=== PATIENT | female | born 1995 | race Two or more races ===

== ENCOUNTER 2021-10-25 19:50 | Emergency (ER) | payer MEDICAID ==
[~2021-10-25] VITALS: Ht 152.4 cm; Wt 54.4 kg
[2021-10-25 20:07] VITALS: BP 152/99
--- NOTE | 2021-10-25 20:10 | NUR ---
BIBS C/O LEFT EAR PAIN X1 DAY WITH REDNESS ON TRAGUS. PATIENT ALERT AND ORIENTED X3. AMBULATORY WITH NON LABORED BREATHING.
[2021-10-25] MEDS ORDERED: CEPH500C2 PO (20:21)
[2021-10-25] MEDS ORDERED: IBUP-1957 PO (20:21)
--- NOTE | 2021-10-25 20:28 | NUR ---
Patient discharged to home in stable condition. Written and verbal after care instructions given. Patient verbalizes understanding of instruction. Patient ambulatory with a steady gait
== END 2021-10-25 20:28 | disposition home or self-care (01) ==
LOC: ER 20:06
DX: S00.412A Abrasion of left ear, initial encounter (principal); Z60.2 Problems related to living alone; X58.XXXA Exposure to other specified factors, initial encounter; Y93.89 Activity, other specified; Y92.89 Other specified places as the place of occurrence of the external cause; Y99.8 Other external cause status